=== PATIENT | male | born 1970 | race Caucasian/White ===

== ENCOUNTER 2016-03-10 15:02 | Emergency (ER) | payer OTHER ==
[2016-03-10] MEDS ORDERED: HYDROcod/ACETAM 5/325 MG TABLET PO STA (15:35)
[2016-03-10] MEDS ORDERED: HYDROcod/ACETAM 5/325 MG TABLET ONE (15:38)
== END 2016-03-10 16:07 | disposition home or self-care (01) ==
DX: S39.012A Strain of muscle, fascia and tendon of lower back, initial encounter (principal); W17.89XA Other fall from one level to another, initial encounter; Y92.007 Garden or yard of unspecified non-institutional (private) residence as the place of occurrence of the external cause
CPT/HCPCS: 99283; A9270

== ENCOUNTER 2016-05-18 10:06 | Emergency (ER) | payer OTHER | END 2016-05-18 12:33 | disposition home or self-care (01) | DX: S20.211A Contusion of right front wall of thorax, initial encounter (principal); W01.198A Fall on same level from slipping, tripping and stumbling with subsequent striking against other object, initial encounter; Y93.K1 Activity, walking an animal; Y92.017 Garden or yard in single-family (private) house as the place of occurrence of the external cause; R03.0 Elevated blood-pressure reading, without diagnosis of hypertension ==